=== PATIENT | female | born 1950 | race Caucasian/White ===

== ENCOUNTER 2017-08-26 05:10 | Emergency (ER) | payer OTHER ==
[~2017-08-26] VITALS: Ht 165.1 cm; Wt 76.0 kg
[~2017-08-26 05:10] MED LIST: DOXY100T PO; LEXA20TA PO; LISI-360 PO; PRED20 PO; VENTAER INH
[2017-08-26 05:13] VITALS: BP 161/79; PULSE 77; RESP 18; TEMP 97.7; O2SAT 97
[2017-08-26] MEDS ORDERED: DEXAMETHASONE SOD PHOS 20 MG/5 ML VIAL IM ONE (06:00)
[2017-08-26] MEDS ORDERED: ORPHENADRINE INJ 60 MG/2 ML AMP IM ONE (06:00)
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
--- NOTE | 2017-08-26 06:31 | RADRPT ---
EXAM DATE/TIME: 08/26/2017 06:11 [facility] COMPARISON: CHEST PA & LAT, November 29, 2015, 7:26. INDICATIONS : Pt had previous surgery and now feels chest pain- wants hardware checked MEDICAL HISTORY : Asthma SURGICAL HISTORY : Internal fixation of multiple ribs. Partial splenectomy. ENCOUNTER: Initial ACUITY: 1 day PAIN SCORE: 8/10 LOCATION: Bilateral chest FINDINGS: PA and lateral views of the chest demonstrate the lungs to be symmetrically aerated without evidence of mass, infiltrate or effusion. The cardiomediastinal contours are unremarkable. The osseous struct ures are stable in appearance with multiple screw plate fixation devices along the left posterior rib s. The third and fourth plates along the seventh and eighth ribs are broken. CONCLUSION: 1. No acute cardiopulmonary disease. 2. Postsurgical changes with multiple screw plate fixation devices along the left posterior ribs. The third and fourth plates along the seventh and eighth ribs are broken. Jae Morgan MD on August 26, 2017 at 6:27 Board Certified Radiologist. This report was verified electronically.
[2017-08-26] MEDS ORDERED: CYCL10TA PO (06:37)
[2017-08-26] MEDS ORDERED: NORC5TAB PO (06:37)
--- NOTE | 2017-08-26 13:02 | EKG ---
Date Performed: 08/26/2017 Time Performed: 06:20:12 PTAGE: 66 years EKG: Sinus rhythm NORMAL ECG NO PREVIOUS TRACING DOCTOR: Brandon Sam Interpretating Date/Time 08/26/2017 13:01:01
== END 2017-08-26 07:55 | disposition home or self-care (01) ==
LOC: NEPD 05:10
DX: M54.9 Dorsalgia, unspecified (principal); I10 Essential (primary) hypertension; Z79.899 Other long term (current) drug therapy; Z88.2 Allergy status to sulfonamides
CPT/HCPCS: 71020; 93005; 96372; 99284; J1100; J2360

== ENCOUNTER 2018-01-27 06:54 | Emergency (ER) | payer MEDICARE, OTHER ==
[~2018-01-27] VITALS: Ht 165.1 cm; Wt 84.0 kg
[~2018-01-27 06:54] MED LIST changes: +CYCL10TA PO; +NORC5TAB PO
[2018-01-27 06:57] VITALS: BP 123/77; PULSE 79; RESP 20; TEMP 98.7; O2SAT 97
[2018-01-27] MEDS ORDERED: SERT-132 PO (07:09)
[2018-01-27] MEDS ORDERED: VENTAER INH (07:09)
[2018-01-27] MEDS ORDERED: LOVA20TA PO (07:09)
[2018-01-27] MEDS ORDERED: LISI20TA3 PO (07:09)
[2018-01-27] MEDS ORDERED: ZITHTAB PO (07:19)
[2018-01-27] MEDS ORDERED: PHENERGAN W CODEIN PO (07:19)
[2018-01-27] MEDS ORDERED: PRED20 PO (07:19)
--- NOTE | 2018-01-27 07:19 | PD ---
HPI Chief Complaint: Cold / Flu Symptoms Time Seen by Provider: 07:06 Travel History International Travel<30 days: No Contact w/Intl Traveler<30days: No Traveled to known affect area: No History of Present Illness HPI 67-year-old female complains of congestion and coughing. Patient states the symptoms started 4 days ago. Patient states the cough is persistent and mild productive. Patient denies any chest pain or shortness of breath. Patient states that she had fever 4 days ago but not since then. Patient denies abdominal pain. Patient denies any nausea vomiting diarrhea. Patient has history of asthma and has been using inhaler at home. PFSH Past Medical History Asthma: Yes (Allery induced ) High Cholesterol: Yes Hypertension: Yes Tetanus Vaccination: < 5 Years Influenza Vaccination: Yes ?: Not Menopausal: Yes : 0 Para: 0 Past Surgical History Gynecologic Surgery: Yes (Endometrosis) Other Surgery: Yes (Spleen, punctured lung, rib FX w/ plate) Social History Alcohol Use: Yes (Wine/2 glasses/night) Tobacco Use: No Substance Use: No Allergies-Medications (Allergen,Severity, Reaction): Coded Allergies: Sulfa (Sulfonamide Antibiotics) (Verified Allergy, Severe, Hives, 01/27/18) Reported Meds & Prescriptions Reported Meds & Active Scripts Active Reported Ventolin Hfa 18 GM Inh (Albuterol Sulfate) 90 Mcg/Act Aer 2 Puff INH Q4-6H PRN Lovastatin 20 Mg Tab 20 Mg PO HS Sertraline (Sertraline HCl) 50 Mg Tab 50 Mg PO DAILY Lisinopril-Hctz 20-25 Mg Tab 1 Tab PO DAILY Review of Systems General / Constitutional: No: Fever Eyes: No: Visual changes HENT: Positive: Congestion, No: Headaches Cardiovascular: No: Chest Pain or Discomfort Respiratory: Positive: Cough, No: Shortness of Breath Gastrointestinal: No: Abdominal Pain Genitourinary: No: Dysuria Musculoskeletal: No: Pain Skin: No Rash Neurologic: No: Weakness Psychiatric: No: Depression Endocrine: No: Polydipsia Hematologic/Lymphatic: No: Easy Bruising Physical Exam Narrative GENERAL: Well-nourished, well-developed patient. SKIN: Focused skin assessment warm/dry. HEAD: Normocephalic. EYES: No scleral icterus. No injection or drainage. TM: Clear. Throat: Mild erythematous NECK: Supple, trachea midline. No JVD or lymphadenopathy. CARDIOVASCULAR: Regular rate and rhythm without murmurs, gallops, or rubs. RESPIRATORY: Breath sounds equal bilaterally. No accessory muscle use. GASTROINTESTINAL: Abdomen soft, non-tender, nondistended. MUSCULOSKELETAL: No cyanosis, or edema. BACK: Nontender without obvious deformity. No CVA tenderness. Data Data Last Documented VS Vital Signs Date Time Temp Pulse Resp B/P (MAP) Pulse Ox O2 Delivery O2 Flow Rate FiO2 01/27/18 07:05 18 97 Room Air 01/27/18 06:57 98.7 79 123/77 (92) MDM Medical Decision Making Medical Screen Exam Complete: Yes Emergency Medical Condition: Yes Differential Diagnosis Differential diagnosis including URI, bronchitis, pneumonia. Narrative Course 67-year-old female with persistent cough and congestion. Diagnosis Primary Impression: Bronchitis Patient Instructions: General Instructions Additional Instructions: Take medications as directed. Tylenol for fever. Follow-up with personal physician. Return if worse. Med/Other Pt SpecificInfo: Prescription(s) given Scripts Azithromycin (Zithromax Z-Edward) 250 Mg Dspk 250 MG PO DIRECTED for Infection, #1 DSPK 0 Refills 500 MG (2 tabs) day 1, then 1 tab days 2-5. Prov: Osvaldo Remy MD 01/27/18 [Phenergan W Codein] No Conflict Check 10 ML PO Q8HR for Cough, #120 Prov: Osvaldo Remy MD 01/27/18 Prednisone (Prednisone) 20 Mg Tab 20 MG PO DAILY, #5 TAB 0 Refills Prov: Osvaldo Remy MD 01/27/18 Disposition: 01 DISCHARGE HOME Condition: Stable Osvaldo Remy MD Jan 27, 2018 07:19
== END 2018-01-27 07:25 | disposition home or self-care (01) ==
LOC: PHED 06:54
DX: J45.909 Unspecified asthma, uncomplicated (principal); E78.00 Pure hypercholesterolemia, unspecified; I10 Essential (primary) hypertension
CPT/HCPCS: 99283